=== PATIENT | female | born 1970 | race Caucasian/White ===

== ENCOUNTER 2019-06-17 19:46 | Emergency (ER) | payer OTHER, SELFPAY ==
[2019-06-17 19:47] VITALS: BP 132/82; PULSE 86; RESP 18; TEMP 36.6; O2SAT 95; BMI 33.9
[2019-06-17 20:11] VITALS: O2SAT 95
--- NOTE | 2019-06-17 20:27 | ED.DCSUM_ITS ---
History of Present Illness Chief Complaint: Asthma Informant: Patient Onset: Days - 3 Activity at onset: Light Activity, Rest Timing: Continuous Quality: Wheezing Current Severity: Mild Maximum Severity: Moderate Worsened by: Exertion Relieved by: Albuterol Associated Symptoms: Negative for: Chills, Cough Chest Pain: Tightness Narrative: Patient feels like her asthma is flaring up due to lots of sudden weather changes. She has not had a cold or any fever, swelling in her legs, or other symptoms. She is using albuterol MDI and aerosols at home that are helping temporarily, she is asking for steroids. Prior similar symptoms: Yes - asthma - Past Medical History (1) Asthma Status: Chronic (2) Depression Status: Chronic (3) Stage 4 very severe COPD by GOLD classification Status: Chronic Past Medical History - Allergies and Home Meds Allergies/Adverse Reactions: Allergies Penicillins Allergy (Verified 06/17/19 19:49) Rash Tetracyclines Allergy (Verified 06/17/19 19:49) Rash montelukast sodium [From Singulair] Adverse Reaction (Verified 06/17/19 19:49) Other THRUSH Primary Care Physician: Dandre Trujillo MD [Primary Care Provider] - Surgical History: hysterectomy Lives: Spouse/ Significant Other Smoking Status: Former smoker - Family History Maternal Family History: Family History (Last Reviewed 10/31/17 @ 12:54 by Ayanna Lewis) Brother Cancer Mother Hypertension Diabetes CVA (cerebral vascular accident) Heart disease Myocardial infarction Father Cancer Family History: Reports: No pertinent history Review of Systems General: Denies: Chills, Fever, Sweats ENT: Denies: Bilateral ear pain, Rhinorrhea, Sore throat Cardiovascular: Reports: Chest pain. Denies: Palpitations, Heart racing Respiratory: Reports: Dyspnea. Denies: Cough Gastrointestinal: Denies: Nausea, Vomiting Physical Exam Vital Signs/Narrative: Vital Signs Temp Pulse Resp BP Pulse Ox 06/17/19 19:47 97.9 F 86 18 132/82 H 95 Inital Vital Signs reviewed: Yes General: Well nourished, Well developed, No Acute Distress - Conversive in full sentences Head: Normocephalic, Atraumatic Eyes: Perrl, EOMI ENT: Moist mucous membranes, No rhinorrhea Neck: Supple, Nontender, No JVD Respiratory: No distress, Chest nontender, Wheezing - Slight end expiratory only. Negative for: Rales, Rhonchi Abdomen: Soft, Nontender, Nondistended, Normal bowel sounds Extremities: Nontender, No edema Neurological: Alert, Oriented x3, Cranial nerves II-XII grossly intact, Normal Strength, Normal Sensation, Normal Gait Psychological: Normal affect, Normal Mood Diagnostic/Tx/Re-eval Treatment - Dyspnea: Steroid - Medical Decision Making Patient is okay without a nebulizer/beta agonist treatment here. She was given an initial dose of prednisone and prescribed a 5-day additional burst and advised to follow-up or return if worse. She is comfortable with that plan. ED Disposition - Plan for ED Patient: Disposition: Home or Assisted Living Diagnosis: Acute asthma exacerbation Instructions: ASTHMA, Acute (Adult) Prescriptions: Prednisone [Deltasone] 40 mg PO DAILY #10 tab Transmission Status: Pending to [id number] Referrals: Dandre Trujillo MD [Primary Care Provider] - As Needed
[2019-06-17] MEDS: predniSONE 20 MG Tablet 40 MG PO (20:44)
[2019-06-17 20:55] VITALS: PULSE 89; RESP 16; O2SAT 98
== END 2019-06-17 20:55 | disposition home or self-care (01) ==
PROVIDERS: Emergency Provider Emergency Medicine; PCP Family Medicine
DX: J45.901 Unspecified asthma with (acute) exacerbation (principal); J44.9 Chronic obstructive pulmonary disease, unspecified; Z87.891 Personal history of nicotine dependence
CPT/HCPCS: 99282

== ENCOUNTER 2020-02-08 14:34 | Emergency (ER) | payer OTHER, SELFPAY ==
--- NOTE | 2020-02-08 14:52 | RAD_ITS ---
STUDY: X-RAY CHEST REASON FOR EXAM: Female, 49 years old. Asthma exacerbation -- increasing SOB TECHNIQUE: PA and lateral views of the chest. COMPARISON: Comparison is made with prior study dated 02/09/2017. FINDINGS: The lungs are clear and expanded. Scattered calcified granulomas. There is no demonstrated pleural abnormality. Normal size heart. Normal mediastinum and grisel. Normal visualized pulmonary arteries. Normal visualized aortic arch and descending thoracic aorta. There are degenerative changes of the visualized thoracic spine. Normal visualized ribs, clavicles, and shoulders. There is no demonstrated abnormality of the visualized soft tissue structures of the upper abdomen. RAD/Chest 1 View (Portable) IMPRESSION: Scattered calcified granulomas. Electronically Signed: Yaw Baker, at 15:23 EDT , Service support ,
--- NOTE | 2020-02-08 14:53 | ED.VIS.GEN ---
History of Present Illness Chief Complaint: Shortness of Breath Informant: Patient Narrative: Patient states she has a history of asthma. States that she sees [facility] practice and they manage her asthma. She takes albuterol and Symbicort. On the fifth she began to have an exacerbation of her asthma was seen in urgent care and started prednisone on the seventh. She did a 10-day taper. While she was on 60 mg of prednisone she states she felt significantly better. However as she tapered she felt more chest tightness returning. No fevers or cough. She does have a nebulizer at home that uses albuterol solution. She notes it is very typical for her to have asthma exacerbations with changes of weather. - Past Medical History (1) Asthma Status: Chronic (2) Former smoker Status: Chronic (3) Stage 4 very severe COPD by GOLD classification Status: Chronic Past Medical History - Allergies and Home Meds Allergies/Adverse Reactions: Allergies Penicillins Allergy (Verified 06/17/19 19:49) Rash Tetracyclines Allergy (Verified 06/17/19 19:49) Rash montelukast sodium [From Singulair] Adverse Reaction (Verified 06/17/19 19:49) Other THRUSH Primary Care Physician: Dandre Trujillo MD [Primary Care Provider] - Prior records reviewed: Yes Surgical History: noncontributory, hysterectomy Smoking Status: Former smoker Alcohol: None Drugs: None - Family History Maternal Family History: Family History (Last Reviewed 10/31/17 @ 12:54 by Ayanna Lewis) Brother Cancer Mother Hypertension Diabetes CVA (cerebral vascular accident) Heart disease Myocardial infarction Father Cancer Family History: Reports: No pertinent history Review of Systems General: Denies: Chills, Fever, Sweats Eyes: Denies: Visual changes - bilaterally, Diplopia ENT: Denies: Rhinorrhea, Sore throat Cardiovascular: Denies: Chest pain, Palpitations Respiratory: Reports: Dyspnea, Dyspnea on exertion. Denies: Cough, Sputum Gastrointestinal: Denies: Abdominal pain, Nausea, Vomiting, Diarrhea, Melena, Hematochezia Genitourinary: Denies: Dysuria, Hematuria, Frequency Musculoskeletal: Denies: Back pain, Extremity Pain Skin: Denies: Rash, Wounds Neurological: Denies: Headache, Weakness, Numbness Physical Exam Vital Signs/Narrative: Vital Signs Temp Pulse Resp BP Pulse Ox 02/08/20 14:37 97.3 F L 88 16 139/83 H 97 02/08/20 14:35 97.3 F L 87 16 139/83 H 95 Inital Vital Signs reviewed: Yes General: Well nourished, Well developed, No Acute Distress Head: Normocephalic, Atraumatic Eyes: Perrl, EOMI ENT: Moist mucous membranes, No rhinorrhea Neck: Supple, Nontender Cardiovascular: Regular rate, Regular rhythm, No murmurs Respiratory: No distress, Chest nontender, Wheezing - Expiratory, Diminished Abdomen: Soft, Nontender, Nondistended, Normal bowel sounds Back: Nontender, Normal Inspection Extremities: Nontender, No edema Skin: Normal color, No rash Neurological: Alert, Oriented x3, Cranial nerves II-XII grossly intact, Normal Strength, Normal Sensation Psychological: Normal affect, Normal Mood ED Disposition - Plan for ED Patient: Disposition: Home or Assisted Living Diagnosis: Asthma exacerbation Instructions: ED REACTIVE AIRWAY DISEASE Adult Prescriptions: Ipratropium/Albuterol Sulfate [Duoneb] 3 ml INHALATION Q6H.RT #25 ampul.neb Prescription Printed Prednisone 10 mg PO DAILY #63 tab Prescription Printed Referrals: Dandre Trujillo MD [Primary Care Provider] - 3-5 Days
[2020-02-08 14:56] VITALS: O2SAT 96
[2020-02-08] MEDS: Ipratropium/Albuterol Sulfate 3 ML AMPUL.NEB INHALATION (15:06)
== END 2020-02-08 15:53 | disposition home or self-care (01) ==
DX: J45.901 Unspecified asthma with (acute) exacerbation (principal); Z87.891 Personal history of nicotine dependence
CPT/HCPCS: 71045; 94640; 99282